=== PATIENT | female | born 2000 | race Hispanic/Latino ===

== ENCOUNTER 2022-07-25 02:00 | Emergency (ER) | payer OTHER | END 2022-07-25 02:19 | disposition home or self-care (01) | LOC: ER 02:00 | DX: O26.891 Other specified pregnancy related conditions, first trimester (principal); R51.9 Headache, unspecified; I10 Essential (primary) hypertension | CPT/HCPCS: 99282 ==

== ENCOUNTER 2024-03-11 02:59 | Emergency (ER) | payer OTHER ==
[~2024-03-11] VITALS: Ht 162.6 cm; Wt 108.9 kg
[2024-03-11 03:06] VITALS: PULSE 81; RESP 16; TEMP 98.9; O2SAT 100
[2024-03-11] MEDS ORDERED: LIDOCAINE HCL 1% LOCAL INJ 20 ML VIAL ONE (03:14)
[2024-03-11] MEDS ORDERED: CEPHALEXIN500 MG PO (03:33)
[2024-03-11] MEDS: BACITRACIN ZINC 0.9GM TP ONE (03:35)
[2024-03-11] MEDS: LIDOCAINE HCL 1% LOCAL INJ 20 ML VIAL INJ ONE (03:36)
== END 2024-03-11 03:55 | disposition home or self-care (01) ==
LOC: ER 03:06
DX: S61.412A Laceration without foreign body of left hand, initial encounter (principal); W26.0XXA Contact with knife, initial encounter; Y93.9 Activity, unspecified
CPT/HCPCS: 12001; 99282; J2001